=== PATIENT | female | born 1940 | race Caucasian/White ===

== ENCOUNTER 2021-11-16 12:59 | Inpatient (IN) | payer MEDICARE, OTHER ==
[2021-11-16 14:40] VITALS: BP 175/77
[2021-11-16] MEDS ORDERED: ASPI81TA26 PO (15:54)
[2021-11-16] MEDS ORDERED: CETI-24 PO (15:54)
[2021-11-16] MEDS ORDERED: FLUTISP NARES (15:54)
[2021-11-16] MEDS ORDERED: AMLO1TAB24 PO (15:54)
[2021-11-16] MEDS ORDERED: HOME MED LIST COMPLETE! XX SCH (15:55)
[2021-11-16 16:00] VITALS: BP 135/65
[2021-11-16 16:57] LABS: CK-MB VALUE MASS 2.5 NG/ML (<3.6); MB/CK RELATIVE INDEX 2.4 (< OR =4)
[2021-11-16 20:00] VITALS: BP 121/56
[2021-11-16] MEDS: ASPIRIN 81MG ENTERIC TABLET PO SCH ×3 (20:26→20:30)
[2021-11-16 23:48] LABS: CK-MB VALUE MASS 2.2 NG/ML (<3.6); MB/CK RELATIVE INDEX 2.18 (< OR =4)
[2021-11-17] VITALS: BP 102/53
[2021-11-17 04:00] VITALS: BP 122/62
[2021-11-17 08:01] VITALS: BP_SYST 132; BP_SYST 153; BP_SYST 157; BP_DIAS 61; BP_DIAS 66; BP_DIAS 70
[2021-11-17 11:15] LABS: HEMATOCRIT 38.1 % (36.0-47.0); HEMOGLOBIN 13.1 g/dl (12.0-15.5); MEAN CORPUSCULAR HEMOGLOBIN 28.9 pg (27.0-33.0); MEAN CORPUSCULAR HGB CONC 34.4 g/dl (32.0-36.5); MEAN CORPUSCULAR VOLUME 84.1 fl (80.0-96.0); PLATELET COUNT, AUTOMATED 264 10^3/uL (150-450); RED BLOOD COUNT 4.53 10^6/uL (4.00-5.40); WHITE BLOOD COUNT 5.4 10^3/uL (4.0-10.0)
[2021-11-17 11:41] LABS: CK-MB VALUE MASS 1.2 NG/ML (<3.6); MB/CK RELATIVE INDEX 1.19 (< OR =4)
[2021-11-17 11:51] LABS: BLOOD UREA NITROGEN 15 MG/DL (7-18); CALCIUM LEVEL 9.1 MG/DL (8.8-10.2); CARBON DIOXIDE LEVEL 30 MEQ/L (21-32); CHLORIDE LEVEL 106 MEQ/L (98-107); CREATININE FOR GFR 0.81 MG/DL (0.55-1.30); GLOMERULAR FILTRATION RATE > 60.0 (>32); GLUCOSE, FASTING 108 MG/DL (70-100); MAGNESIUM LEVEL 2.3 MG/DL (1.8-2.4); POTASSIUM SERUM 3.9 MEQ/L (3.5-5.1); SODIUM LEVEL 139 MEQ/L (136-145)
[2021-11-17 14:45] VITALS: BP 162/69
[2021-11-17 15:42] LABS: CK-MB VALUE MASS 1.7 NG/ML (<3.6); MB/CK RELATIVE INDEX 1.55 (< OR =4)
[2021-11-17 16:24] VITALS: BP 158/67
[2021-11-17 20:00] VITALS: BP 121/57
[2021-11-17] MEDS: ASPIRIN 81MG ENTERIC TABLET PO SCH (20:03)
[2021-11-18] VITALS: BP 113/59
[2021-11-18 00:56] LABS: CK-MB VALUE MASS 1.9 NG/ML (<3.6); MB/CK RELATIVE INDEX 1.74 (< OR =4)
[2021-11-18 01:54] VITALS: BP_SYST 114; BP_SYST 133; BP_SYST 145; BP_DIAS 63; BP_DIAS 65
[2021-11-18 04:00] VITALS: BP 122/58
[2021-11-18 07:58] LABS: HEMATOCRIT 39.8 % (36.0-47.0); HEMOGLOBIN 13.4 g/dl (12.0-15.5); MEAN CORPUSCULAR HEMOGLOBIN 28.1 pg (27.0-33.0); MEAN CORPUSCULAR HGB CONC 33.7 g/dl (32.0-36.5); MEAN CORPUSCULAR VOLUME 83.4 fl (80.0-96.0); PLATELET COUNT, AUTOMATED 261 10^3/uL (150-450); RED BLOOD COUNT 4.77 10^6/uL (4.00-5.40); WHITE BLOOD COUNT 6.8 10^3/uL (4.0-10.0)
[2021-11-18 08:22] VITALS: BP 163/69
[2021-11-18 08:24] LABS: BLOOD UREA NITROGEN 15 MG/DL (7-18); CALCIUM LEVEL 8.9 MG/DL (8.8-10.2); CARBON DIOXIDE LEVEL 26 MEQ/L (21-32); CHLORIDE LEVEL 106 MEQ/L (98-107); CREATININE FOR GFR 0.79 MG/DL (0.55-1.30); GLOMERULAR FILTRATION RATE > 60.0 (>32); GLUCOSE, FASTING 105 MG/DL (70-100); MAGNESIUM LEVEL 2.2 MG/DL (1.8-2.4); POTASSIUM SERUM 3.8 MEQ/L (3.5-5.1); SODIUM LEVEL 138 MEQ/L (136-145)
[2021-11-18 08:26] LABS: CK-MB VALUE MASS 2.3 NG/ML (<3.6); MB/CK RELATIVE INDEX 2.13 (< OR =4)
[2021-11-18] MEDS ORDERED: SENOKOT S TAB PO SCH (09:00)
[2021-11-18 10:15] VITALS: BP_SYST 126; BP_SYST 142; BP_SYST 144; BP_DIAS 61; BP_DIAS 63
[2021-11-18 11:28] VITALS: BP 132/63
[2021-11-18] MEDS ORDERED: AMLO25TA PO (11:41)
== END 2021-11-18 12:51 | disposition home or self-care (01) | DRG 312 ==
LOC: M PCU 12:59
PROVIDERS: ADMIT Internal Medicine Nephrology; ATTEND Internal Medicine
DX: R55 Syncope and collapse (principal); I11.9 Hypertensive heart disease without heart failure; M06.9 Rheumatoid arthritis, unspecified; K21.9 Gastro-esophageal reflux disease without esophagitis; I95.1 Orthostatic hypotension; Z79.82 Long term (current) use of aspirin; Z79.899 Other long term (current) drug therapy; G40.909 Epilepsy, unspecified, not intractable, without status epilepticus

== ENCOUNTER → 2022-04-27 | Outpatient (CLI) | payer MEDICARE ==
[~2022-04-27] MED LIST: AMLO1TAB24 PO; AMLO25TA PO; ASPI81TA26 PO; CETI-24 PO; FLUTISP NARES
== END ==
LOC: M LABSMTC 10:37
PROVIDERS: ATTEND Anesthesiology
DX: Z01.812 Encounter for preprocedural laboratory examination (principal); Z20.822 Contact with and (suspected) exposure to COVID-19

== ENCOUNTER 2022-04-29 06:48 | Day surgery (SDC) | payer MEDICARE ==
[~2022-04-29] VITALS: Ht 154.9 cm; Wt 61.2 kg
[~2022-04-29 06:48] MED LIST changes: +BSS IRRIG/VANCO(10MG)/TOBRA(5MG)/EPINEPH(1:1000-0.5CC)500ML BAG-ORONLY IR ONE; +CEFUROXIME 1MG/0.1ML INTRACAMERAL INJ As Ordered ONE; +LIDOCAINE 1% SDV 5ML VIAL As Ordered ONE; +LIDOCAINE 3.5 % 1ML OPHTH TOPICAL GEL OU ONE; +OFLOXACIN 0.3 % (OCUFLOX) OPTH SOL 5ML OD ONE; +PHENYLEPHRINE HCL 10 % OPHTH. SOL 5ML OD PRN; +acetaZOLAMIDE 500MG ER CAP PO ONE
[2022-04-29] MEDS: CYCLOPENTOLATE 1% OPHTH SOLN 2 ML BTL OD SCH ×2 (07:25→07:35)
[2022-04-29] MEDS: PHENYLEPHRINE 2.5% OPHTH SOL 2ML OD SCH ×2 (07:25→07:35)
[2022-04-29] MEDS: TROPICAMIDE 1% OPHTH SOLN 2ML OD SCH ×2 (07:26→07:35)
[2022-04-29] MEDS ORDERED: MIDAZOLAM INJ 2MG/2ML VIAL (J2250 PER 1MG) As Ordered ONE (08:41)
[2022-04-29] MEDS ORDERED: fentaNYL 100 MCG/2 ML INJECTION As Ordered ONE (08:41)
[2022-04-29 09:15] VITALS: BP 123/75
[2022-04-29] MEDS ORDERED: acetaZOLAMIDE 500MG ER CAP PO ONE (09:15)
[2022-04-29] MEDS ORDERED: ACETAMINOPHEN 325 MG TAB PO PRN ×2 (09:15→13:00)
[2022-04-29] MEDS ORDERED: ONDANSETRON 4MG TAB PO PRN ×2 (09:15→13:00)
== END 2022-04-29 09:30 | disposition home or self-care (01) ==
LOC: M SDC 06:48
PROVIDERS: ATTEND Ophthalmology
DX: H25.11 Age-related nuclear cataract, right eye (principal); I10 Essential (primary) hypertension; Z79.899 Other long term (current) drug therapy
CPT/HCPCS: 66984; J0697; J2250; J3010; V2632

== ENCOUNTER → 2022-07-06 | Outpatient (CLI) | payer MEDICARE ==
[~2022-07-06] MED LIST changes: -BSS IRRIG/VANCO(10MG)/TOBRA(5MG)/EPINEPH(1:1000-0.5CC)500ML BAG-ORONLY IR ONE; -CEFUROXIME 1MG/0.1ML INTRACAMERAL INJ As Ordered ONE; -LIDOCAINE 1% SDV 5ML VIAL As Ordered ONE; -LIDOCAINE 3.5 % 1ML OPHTH TOPICAL GEL OU ONE; -OFLOXACIN 0.3 % (OCUFLOX) OPTH SOL 5ML OD ONE; -PHENYLEPHRINE HCL 10 % OPHTH. SOL 5ML OD PRN; -acetaZOLAMIDE 500MG ER CAP PO ONE
== END ==
LOC: M LABSMTC 09:46
PROVIDERS: ATTEND Anesthesiology
DX: Z01.812 Encounter for preprocedural laboratory examination (principal); Z11.52 Encounter for screening for COVID-19

== ENCOUNTER 2022-07-08 09:28 | Day surgery (SDC) | payer MEDICARE ==
[~2022-07-08] VITALS: Ht 154.9 cm; Wt 64.3 kg
[~2022-07-08 09:28] MED LIST changes: +BSS IRRIG/VANCO(10MG)/TOBRA(5MG)/EPINEPH(1:1000-0.5CC)500ML BAG-ORONLY IR ONE; +CEFUROXIME 1MG/0.1ML INTRACAMERAL INJ As Ordered ONE; +CYCLOPENTOLATE 1% OPHTH SOLN 2 ML BTL OS SCH; +LIDOCAINE 1% 1ML PF SYRINGE (OR EYE CASES) As Ordered ONE; +LIDOCAINE 3.5 % 1ML OPHTH TOPICAL GEL OU ONE; +OFLOXACIN 0.3 % (OCUFLOX) OPTH SOL 5ML OS ONE; +PHENYLEPHRINE 2.5% OPHTH SOL 2ML OS SCH; +PHENYLEPHRINE HCL 10 % OPHTH. SOL 5ML OS PRN; +TROPICAMIDE 1% OPHTH SOLN 2ML OS SCH
[2022-07-08] MEDS ORDERED: MIDAZOLAM INJ 2MG/2ML VIAL (J2250 PER 1MG) As Ordered ONE (10:43)
[2022-07-08] MEDS ORDERED: fentaNYL 100 MCG/2 ML INJECTION As Ordered ONE (10:43)
[2022-07-08 10:55] VITALS: BP 177/75
== END 2022-07-08 11:18 | disposition home or self-care (01) ==
LOC: M SDC 09:28
PROVIDERS: ATTEND Ophthalmology
DX: H25.12 Age-related nuclear cataract, left eye (principal); I10 Essential (primary) hypertension; Z79.899 Other long term (current) drug therapy
CPT/HCPCS: 66984; J0697; J2250; J3010; V2632

== ENCOUNTER 2023-03-29 12:43 | Emergency (ER) | payer OTHER, MEDICARE ==
[~2023-03-29 12:43] MED LIST changes: -BSS IRRIG/VANCO(10MG)/TOBRA(5MG)/EPINEPH(1:1000-0.5CC)500ML BAG-ORONLY IR ONE; -CEFUROXIME 1MG/0.1ML INTRACAMERAL INJ As Ordered ONE; -CYCLOPENTOLATE 1% OPHTH SOLN 2 ML BTL OS SCH; +FLUT50SP17 NARES; -FLUTISP NARES; -LIDOCAINE 1% 1ML PF SYRINGE (OR EYE CASES) As Ordered ONE; -LIDOCAINE 3.5 % 1ML OPHTH TOPICAL GEL OU ONE; -OFLOXACIN 0.3 % (OCUFLOX) OPTH SOL 5ML OS ONE; -PHENYLEPHRINE 2.5% OPHTH SOL 2ML OS SCH; -PHENYLEPHRINE HCL 10 % OPHTH. SOL 5ML OS PRN; -TROPICAMIDE 1% OPHTH SOLN 2ML OS SCH
[2023-03-29 13:53] LABS: BASO % 0.6 % (0.0-1.0); EOS % 0.6 % (0.0-3.0); HEMATOCRIT 41.4 % (36.0-47.0); LYMPH # 1.7 10^3/uL (1.5-5.0); LYMPH % 27.2 % (24.0-44.0); MEAN CORPUSCULAR HEMOGLOBIN 28.2 pg (27.0-33.0); MEAN CORPUSCULAR HGB CONC 33.8 g/dl (32.0-36.5); MEAN CORPUSCULAR VOLUME 83.5 fl (80.0-96.0); MONO # 0.5 10^3/uL (0.0-0.8); MONO % 7.2 % (2.0-8.0); NEUTROPHILS % 63.9 % (36.0-66.0); PLATELET COUNT, AUTOMATED 273 10^3/uL (150-450); RED BLOOD COUNT 4.96 10^6/uL (4.00-5.40); WHITE BLOOD COUNT 6.3 10^3/uL (4.0-10.0)
[2023-03-29] MEDS ORDERED: ISOVUE-370 76% 100ML VIAL As Ordered ONE (14:03)
[2023-03-29 15:49] VITALS: BP 166/78; TEMP 96.2; O2SAT 96
== END 2023-03-29 15:51 | disposition home or self-care (01) ==
LOC: M ED 12:43 → EDBD 12:43 → M ED 15:51
DX: I31.39 Other pericardial effusion (noninflammatory) (principal); R91.1 Solitary pulmonary nodule; N83.8 Other noninflammatory disorders of ovary, fallopian tube and broad ligament; V49.50XA Passenger injured in collision with unspecified motor vehicles in traffic accident, initial encounter; I10 Essential (primary) hypertension; K21.9 Gastro-esophageal reflux disease without esophagitis; G31.84 Mild cognitive impairment of uncertain or unknown etiology; Z79.899 Other long term (current) drug therapy
CPT/HCPCS: 36415; 70450; 71260; 72125; 73630; 74177; 80047; 85025; 93041; 94760; 99284; Q9967

== ENCOUNTER → 2024-12-13 | Outpatient (REF) ==
[~2024-12-13] MED LIST changes: -FLUT50SP17 NARES; +FLUTISP NARES
== END ==
LOC: M CFLAB 12:05
DX: N39.0 Urinary tract infection, site not specified (principal)

== ENCOUNTER → 2025-03-02 | Outpatient (REF) | LOC: M LABCFH 15:03 | DX: N39.0 Urinary tract infection, site not specified (principal) ==

== ENCOUNTER → 2025-06-13 | Outpatient (REF) | LOC: M CFLAB 15:20 | DX: N39.0 Urinary tract infection, site not specified (principal) ==